=== PATIENT | male | born 1980 | race Caucasian/White ===

== ENCOUNTER 2024-05-10 02:51 | Emergency (ER) | payer OTHER ==
[2024-05-10 03:15] LABS: BASOPHILS ABSOLUTE AUTO 0.03 K/uL (0.00-0.20); BASOPHILS PERCENT AUTO 0.4 % (0.0-1.0); EOSINOPHILS PERCENT AUTO 2.9 % (0.0-6.0); HEMATOCRIT 33.3 % (42.0-52.0); IMMATURE GRAN ABSOLUTE AUTO 0.04 K/uL (0.00-0.05); IMMATURE GRAN PERCENT AUTO 0.6 % (0.0-0.4); LYMPHOCYTES ABSOLUTE AUTO 1.46 K/uL (1.00-4.80); LYMPHOCYTES PERCENT AUTO 21.4 % (24.0-44.0); MEAN CORPUSCULAR HEMOGLOBIN 30.9 pg (28.0-32.0); MEAN CORPUSCULAR VOLUME 93.5 fL (83.0-99.0); MEAN PLATELET VOLUME 8.8 fL (9.4-12.4); MONOCYTES ABSOLUTE AUTO 0.66 K/uL (0.00-0.80); MONOCYTES PERCENT AUTO 9.7 % (0.0-8.0); NEUTROPHILS ABSOLUTE AUTO 4.44 K/uL (1.80-7.70); PLATELET COUNT,PLT 205 K/uL (150-400); RED BLOOD CELL COUNT 3.56 M/uL (4.52-5.90); WHITE BLOOD CELL COUNT,WBC 6.83 K/uL (3.9-11.3)
[2024-05-10 03:32] LABS: BLOOD UREA NITROGEN,BUN 16 mg/dL (7.0-18.0); CALCIUM 9.3 mg/dL (8.5-10.1); CARBON DIOXIDE,CO2 28.2 mmol/L (21.0-32.0); CHLORIDE,CL 102 mmol/L (98-107); CREATININE 1.1 mg/dL (0.8-1.3); EST CRCL DRUG DOSING (CG) 94.06 mL/min; GLUCOSE RANDOM 111 mg/dL (74-106); POTASSIUM,K 3.7 mmol/L (3.5-5.1); SODIUM,NA 139 mmol/L (136-148)
[2024-05-10 03:35] LABS: ESTIMATED GFR 85 mL/min (>60)
[2024-05-10] MEDS: Ketorolac 30 MG/ML SDV IVPUSH ONE (03:46)
[2024-05-10] MEDS: Iopamidol 755 MG/ML 500 ML Multipack Bottle IVPUSH STA (08:01)
== END 2024-05-10 11:24 | disposition home or self-care (01) ==
LOC: MW.ED 02:51
DX: R07.81 Pleurodynia (principal); Z86.16 Personal history of COVID-19; Z88.0 Allergy status to penicillin
CPT/HCPCS: 36415; 71046; 71275; 74177; 80048; 84484; 85025; 85379; 93005; 96374; 99285; J1885; Q9967